=== PATIENT | male | born 1985 | race African-American/Black ===

== ENCOUNTER 2024-02-29 17:09 | Emergency (ER) | payer SELFPAY ==
[2024-02-29 17:16] VITALS: BP 126/90
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
[2024-02-29] MEDS: MOTRIN 400 MG PO (18:00)
== END 2024-02-29 18:14 | disposition home or self-care (01) ==
LOC: EMR 17:09
PROVIDERS: EMERGENCY PHYSICIAN Emergency Medicine; FAMILY PHYSICIAN Internal Medicine
DX: S16.1XXA Strain of muscle, fascia and tendon at neck level, initial encounter (principal); S39.012A Strain of muscle, fascia and tendon of lower back, initial encounter; V49.40XA Driver injured in collision with unspecified motor vehicles in traffic accident, initial encounter; Y92.410 Unspecified street and highway as the place of occurrence of the external cause
CPT/HCPCS: 99283